=== PATIENT | female | born 2005 | race Caucasian/White ===

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

== ENCOUNTER 2023-03-01 14:48 | Emergency (ER) | payer BC, SELFPAY ==
[2023-03-01 15:21] VITALS: BP 98/58; PULSE 78; RESP 18; TEMP 36.1; O2SAT 100
--- NOTE | 2023-03-01 17:38 | ED.SKABFB ---
HPI - Skin/Abscess/Foreign Bdy General Chief complaint: Skin/Abscess/Foreign Body Stated complaint: cyst Time Seen by Provider: 03/01/23 17:07 History of Present Illness HPI narrative: This is a 17-year-old female, with no known significant past medical history, who presents emergency department complaining of a painful cyst on the right buttock for the past several days. Patient states he has had similar cyst on the buttock and labia previously, though this is larger than usual. She complains of 7/10 dull and intermittently sharp pain. She states she has tried sitz bath's without relief. She has no complaints at this time Related Data Allergies Allergy/AdvReac Type Severity Reaction Status Date / Time No Known Allergies Allergy Verified 03/01/23 16:49 Review of Systems Review of Systems: CONSTITUTIONAL: Denies fever, chills, or sweats. CARDIOVASCULAR: Denies chest pain, palpitations, or edema. RESPIRATORY: Denies cough or dyspnea. GASTROINTESTINAL: Denies abdominal pain, nausea, vomiting, or diarrhea. GENITOURINARY: Last menstrual period completed yesterday denies dysuria or hematuria. SKIN: Painful cyst of the right buttock denies rash or itching. MUSCULOSKELETAL: Denies back pain, joint pain, or myalgia. NEUROLOGIC: Denies headache, numbness, dizziness, or weakness. PSYCHIATRIC: Denies anxiety or depression. PMFSH Past Medical History Medical History Asthma Surgical History Surgical History No significant past surgical history Social History Social History Smoking status: Never smoker Alcohol intake: never Substance use: never Exam Narrative: GENERAL: Well-developed, well-nourished, and in no acute distress. HEAD: Normocephalic, atraumatic. EYES: PERRLA and EOMI. CHEST: Clear to auscultation. No respiratory distress. No wheezes rales or rhonchi HEART: Regular rate and rhythm. No murmur heard. Normal peripheral pulses. ABDOMEN: Soft, nontender, nondistended, normal active bowel sounds. : (Exam chaperoned by female biomedical equipment technician Daniella) normal external female genitalia, there is a tender, fluctuant, erythematous mass measuring approximately 3 x 1 cm on the medial surface of the right gluteus with a single central papule, consistent with abscess. EXTREMITIES: Normal range of motion. No edema. SKIN: Warm, dry, no rash. NEURO: Alert and oriented x3. Moving all 4 limbs purposefully. PSYCH: Normal mood and affect. Course Course Emergency Course: 17:20 - During examination, a lesion was noted on the mass consistent with abscess. With palpation this began draining on its own. Approximately 5 to 6 mL of purulent, bloody fluid was drained from the abscess with complete decompression. The patient tolerated this well. No anesthetic or additional incision was required. Will discharge with recommendation for continued sitz bath's and follow-up with her primary care doctor. The patient's mother notes she was started on Bactrim by her primary care doctor. Discussed return and emergency precautions including signs/symptoms of Александр's gangrene and acute abdomen. The patient and her mother voiced understanding and are comfortable with the plan. All questions answered to their satisfaction. Vital Signs Vital signs: Vital Signs Temperature 97 F L 03/01/23 15:21 Pulse Rate 78 03/01/23 15:21 Respiratory Rate 18 03/01/23 15:21 Blood Pressure 98/58 L 03/01/23 15:21 Pulse Oximetry 100 03/01/23 15:21 Oxygen Delivery Room Air 03/01/23 15:21 Temperature 97 F L 03/01/23 15:21 Pulse Rate 86 03/01/23 18:07 Respiratory Rate 18 03/01/23 18:07 Blood Pressure 102/69 03/01/23 18:07 Pulse Oximetry 98 03/01/23 18:07 Oxygen Delivery Room Air 03/01/23 15:21 MDM - Skin/Abscess/Foreign Bdy MDM Narrat
[2023-03-01 18:07] VITALS: BP 102/69; PULSE 86; RESP 18; O2SAT 98
== END 2023-03-01 18:08 | disposition home or self-care (01) ==
LOC: ANHED 17:41
PROVIDERS: Emergency Provider Preventive Medicine Aerospace Medicine; PCP Pediatrics
DX: L02.31 Cutaneous abscess of buttock (principal); J45.909 Unspecified asthma, uncomplicated
CPT/HCPCS: 99281